=== PATIENT | female | born 1975 | race Caucasian/White ===

== ENCOUNTER → 2017-04-26 | Outpatient (CLI) | payer OTHER ==
[~2017-04-26] MED LIST: ATEN-60 PO; METH10TA6 PO
== END | disposition home or self-care (01) ==
LOC: LAB 13:43
PROVIDERS: ATTEND Preventive Medicine Preventive Medicine/Occupational Environmental Medicine
DX: Z02.1 Encounter for pre-employment examination (principal)
CPT/HCPCS: 36415; 86706; 86735; 86762; 86765; 86787

== ENCOUNTER 2017-06-11 22:32 | Emergency (ER) | payer OTHER ==
[~2017-06-11] VITALS: Ht 152.4 cm; Wt 55.0 kg
[2017-06-11 23:41] LABS: Basophils # (auto) 0 uL; Basophils % (auto) 0.5 % (0.0-2.0); DEFINITIVE SEE PRINTOUT; Eosinophils # (auto) 0 uL; Eosinophils % (auto) 0.6 % (0.0-7.0); Hematocrit 37.9 % (36.0-46.0); Hemoglobin 12.4 g/dL (12.2-16.2); Lymphocytes # (auto) 2.2 uL; Mean Corpuscular Hemoglobin 25.3 pg (28.0-32.0); Mean Corpuscular Hgb Conc. 32.7 g/dL (32.0-36.0); Mean Corpuscular Volume 77.3 fL (80.0-100.0); Mean Platelet Volume 9.4 fL (7.4-10.4); Monocytes # (auto) 0.8 uL; Monocytes % (auto) 11.6 % (0.0-12.0); Neutrophils % (auto) 56.3 % (37.0-80.0); Platelet Count (auto) 255 10^3/uL (140-450); Red Cell Distribution Width 13.2 % (11.6-16.0)
[2017-06-11 23:47] LABS: Albumin 3.9 g/dL (3.4-5.0); Anion Gap 8 (5-15); Calcium 8.8 mg/dL (8.5-10.1); Carbon Dioxide 26 mmol/L (21-32); Chloride 106 mmol/L (98-107); Glucose 91 mg/dL (74-106); Magnesium 2.6 mg/dL (1.6-2.6); Potassium 3.8 mmol/L (3.5-5.1); Sodium 140 mmol/L (136-145)
[2017-06-11 23:48] LABS: INR 0.93 (0.9-1.15); Partial Thromboplastin Time 25.2 sec (22.64-33.71); Prothrombin Time 10.1 sec (9.37-12.3)
[2017-06-11 23:53] LABS: Alkaline Phosphatase 66 U/L (45-117); Aspartate Aminotransferase 20 U/L (15-37); BUN/Creatinine Ratio 12.7; Bilirubin, Total 0.4 mg/dL (0.2-1.0); Blood Urea Nitrogen 8 mg/dL (7-18); GFR African American 135 mL/min; GFR Non-African American 112 mL/min; Total Protein 7.8 g/dL (6.4-8.2)
[2017-06-12 00:02] LABS: Urine Bilirubin Negative (Negative); Urine Blood Negative /uL (Negative); Urine Glucose Normal (Normal); Urine Ketone Negative (Negative); Urine Nitrite Negative (Negative); Urine RBC 1 /hpf (0 - 4); Urine Squamous Epithelial Cell FEW /hpf (<5); Urine Urobilinogen Normal (Negative); Urine pH 6.5 (5.0-8.0)
[2017-06-12 00:03] LABS: Urine Color Straw (Yellow)
[2017-06-12 01:33] VITALS: BP 125/82
== END 2017-06-12 03:28 | disposition home or self-care (01) ==
LOC: ER 22:36
DX: R42 Dizziness and giddiness (principal); E07.9 Disorder of thyroid, unspecified; Z79.899 Other long term (current) drug therapy; I10 Essential (primary) hypertension; F17.210 Nicotine dependence, cigarettes, uncomplicated; R51 Headache
CPT/HCPCS: 36415; 80053; 81001; 83735; 84443; 84484; 85025; 85610; 85730; 93005

== ENCOUNTER → 2017-08-12 | Outpatient (CLI) | payer BC ==
[2017-08-12 13:52] LABS: Prolactin 4.2 ng/mL (2.8-29.2)
[2017-08-12 13:53] LABS: Follicle Stimulating Hormone 5.17 IU/L (SEE BELOW); Leuteinizing Hormone 3.3 IU/L
== END | disposition home or self-care (01) ==
LOC: LAB 11:27
PROVIDERS: ATTEND Specialist
DX: N93.9 Abnormal uterine and vaginal bleeding, unspecified (principal); Z80.41 Family history of malignant neoplasm of ovary
CPT/HCPCS: 36415; 83001; 83002; 84146; 84443

== ENCOUNTER 2017-08-14 07:54 | Emergency (ER) | payer BC ==
[~2017-08-14] VITALS: Ht 152.4 cm; Wt 55.3 kg
[2017-08-14 08:04] VITALS: BP 142/95
[2017-08-14] MEDS ORDERED: KETOROLAC TROMETH 60MG/2ML VIAL IM ONE (08:45)
== END 2017-08-14 09:06 | disposition home or self-care (01) ==
LOC: ER 07:54
DX: M25.562 Pain in left knee (principal); G89.29 Other chronic pain; F17.210 Nicotine dependence, cigarettes, uncomplicated
CPT/HCPCS: 96372; 99283; J1885

== ENCOUNTER 2018-06-22 13:09 | Emergency (ER) | payer BC ==
[~2018-06-22] VITALS: Ht 165.1 cm; Wt 55.3 kg
[2018-06-22 13:25] VITALS: BP 139/95
[2018-06-22 15:34] LABS: Urine Bacteria FEW /hpf (None Seen); Urine Blood Negative /uL (Negative); Urine Specific Gravity 1.007 (1.001-1.035); Urine WBC 8 /hpf (0 - 5)
[2018-06-22] MEDS ORDERED: HYDROcodone-ACET 10/325MG TAB PO ONE (16:30)
[2018-06-22] MEDS ORDERED: MORPHINE SULFATE 4 MG/ML SYR/VIAL IV ONE (16:30)
[2018-06-22] MEDS ORDERED: ONDANSETRON HCL 4 MG/2 ML VIAL IV ONE (16:30)
[2018-06-22] MEDS ORDERED: IBUPROFEN 800 MG TAB PO ONE (16:45)
[2018-06-22] MEDS ORDERED: cefTRIAXone SOD 1,000 MG VL IM ONE (18:15)
[2018-06-22 18:32] LABS: Basophils # (auto) 0 uL; Eosinophils # (auto) 0 uL; Neutrophils % (auto) 75.2 % (37.0-80.0)
[2018-06-22 18:33] LABS: Basophils % (auto) 0.5 % (0.0-2.0); Eosinophils % (auto) 0.3 % (0.0-7.0); Hematocrit 34.6 % (36.0-46.0); Lymphocytes # (auto) 1.4 uL; Lymphocytes % (auto) 14.2 % (10.0-50.0); Mean Corpuscular Hemoglobin 21.5 pg (28.0-32.0); Mean Corpuscular Hgb Conc. 31.9 g/dL (32.0-36.0); Mean Corpuscular Volume 67.4 fL (80.0-100.0); Monocytes # (auto) 0.9 uL; Monocytes % (auto) 9.8 % (0.0-12.0); Neutrophils # (auto) 7.3 uL; Platelet Count (auto) 263 10^3/uL (140-450); Red Blood Cells 5.13 10^6/uL (4.0-5.20); Red Cell Distribution Width 18.2 % (11.8-14.3); White Blood Cell 9.7 10^3/uL (4.4-10.8)
[2018-06-22 18:37] LABS: Albumin 3.9 g/dL (3.4-5.0); BUN/Creatinine Ratio 23.6; Bilirubin, Total 0.5 mg/dL (0.2-1.0); Calcium 8.8 mg/dL (8.5-10.1); Potassium 4.2 mmol/L (3.5-5.1); Total Protein 7.8 g/dL (6.4-8.2)
[2018-06-22] MEDS ORDERED: LIDOCAINE 1% HCL (LOCAL ANESTH.) INJ 20ML MDV IJ ONE (18:45)
== END 2018-06-22 19:04 | disposition home or self-care (01) ==
LOC: ER 13:09
DX: N20.0 Calculus of kidney (principal); E07.89 Other specified disorders of thyroid; F17.210 Nicotine dependence, cigarettes, uncomplicated
CPT/HCPCS: 36415; 74176; 80053; 81001; 81002; 85025; 96372; 99285; J0696

== ENCOUNTER 2018-09-05 16:36 | Emergency (ER) | payer BC ==
[~2018-09-05] VITALS: Ht 149.9 cm; Wt 55.3 kg
[2018-09-05 18:11] LABS: Basophils # (auto) 0 uL; Eosinophils # (auto) 0.1 uL; Nucleated Red Blood Cells % 0.1 %
[2018-09-05 18:12] LABS: Basophils % (auto) 0.6 % (0.0-2.0); Eosinophils % (auto) 1.1 % (0.0-7.0); Hematocrit 36.5 % (36.0-46.0); Hemoglobin 11.6 g/dL (12.2-16.2); Lymphocytes # (auto) 1.5 uL; Lymphocytes % (auto) 30.2 % (10.0-50.0); Mean Corpuscular Hemoglobin 22.1 pg (28.0-32.0); Mean Corpuscular Hgb Conc. 31.8 g/dL (32.0-36.0); Mean Corpuscular Volume 69.7 fL (80.0-100.0); Monocytes # (auto) 0.8 uL; Monocytes % (auto) 15.4 % (0.0-12.0); Neutrophils # (auto) 2.7 uL; Neutrophils % (auto) 52.7 % (37.0-80.0); Platelet Count (auto) 274 10^3/uL (140-450); Red Blood Cells 5.24 10^6/uL (4.0-5.20); Red Cell Distribution Width 17.3 % (11.8-14.3)
[2018-09-05 18:27] LABS: Alanine Aminotransferase 34 U/L (13-56); Albumin 3.7 g/dL (3.4-5.0); Anion Gap 10 (5-15); Aspartate Aminotransferase 24 U/L (15-37); BUN/Creatinine Ratio 21.3; Blood Urea Nitrogen 13 mg/dL (7-18); Calcium 8.3 mg/dL (8.5-10.1); Carbon Dioxide 24 mmol/L (21-32); Chloride 106 mmol/L (98-107); GFR African American 139 mL/min; GFR Non-African American 115 mL/min; Glucose 89 mg/dL (74-106); Magnesium 2.2 mg/dL (1.6-2.6); Potassium 3.8 mmol/L (3.5-5.1); Sodium 140 mmol/L (136-145)
[2018-09-05 18:30] LABS: Alcohol, Urine < 3.0 mg/dL (0-5); Amphetamine Screen, Urine NEGATIVE (NEGATIVE); Barbiturate Scree,Urine NEGATIVE (NEGATIVE); Benzodiazephine Screen, Urine NEGATIVE (NEGATIVE); Cannabinoid Screen, Urine NEGATIVE (NEGATIVE); Cocaine Screen, Urine NEGATIVE (NEGATIVE); Opiate Scree,Urine NEGATIVE (NEGATIVE); Phencyclidine Screen, Urine NEGATIVE (NEGATIVE)
[2018-09-05 18:32] LABS: Alkaline Phosphatase 89 U/L (45-117); Bilirubin, Total 0.3 mg/dL (0.2-1.0); Total Protein 7.7 g/dL (6.4-8.2)
[2018-09-05 19:30] VITALS: BP 130/85
== END 2018-09-05 20:53 | disposition home or self-care (01) ==
LOC: ER 16:41
DX: R00.2 Palpitations (principal); E07.89 Other specified disorders of thyroid; Z90.89 Acquired absence of other organs; Z98.51 Tubal ligation status
CPT/HCPCS: 36415; 80053; 80307; 83735; 84443; 84484; 85025; 93005; 94761

== ENCOUNTER 2018-09-14 20:39 | Emergency (ER) | payer BC ==
[~2018-09-14] VITALS: Ht 149.9 cm; Wt 54.4 kg
[2018-09-14 21:55] LABS: Basophils # (auto) 0 uL; Eosinophils # (auto) 0 uL; Eosinophils % (auto) 0.1 % (0.0-7.0); Lymphocytes # (auto) 1.1 uL; Mean Corpuscular Hemoglobin 22.4 pg (28.0-32.0); Mean Corpuscular Hgb Conc. 31.8 g/dL (32.0-36.0); Monocytes # (auto) 1.3 uL; White Blood Cell 11.6 10^3/uL (4.4-10.8)
[2018-09-14 21:56] LABS: Basophils % (auto) 0.2 % (0.0-2.0); Hematocrit 37.1 % (36.0-46.0); Hemoglobin 11.8 g/dL (12.2-16.2); Lymphocytes % (auto) 9.4 % (10.0-50.0); Mean Corpuscular Volume 70.7 fL (80.0-100.0); Neutrophils # (auto) 9.2 uL; Neutrophils % (auto) 79.3 % (37.0-80.0); Platelet Count (auto) 262 10^3/uL (140-450); Red Blood Cells 5.24 10^6/uL (4.0-5.20); Red Cell Distribution Width 18.2 % (11.8-14.3)
[2018-09-14 22:13] LABS: Albumin 3.6 g/dL (3.4-5.0); BUN/Creatinine Ratio 9.3; Potassium 3.6 mmol/L (3.5-5.1)
[2018-09-14 22:16] LABS: Bilirubin, Total 0.9 mg/dL (0.2-1.0)
[2018-09-14 22:19] LABS: Urine Bacteria FEW /hpf (None Seen); Urine Blood 1+ /uL (Negative); Urine Mucus FEW (None Seen); Urine Specific Gravity 1.017 (1.001-1.035); Urine WBC 230 /hpf (0 - 5); Urine WBC Clumps PRESENT /hpf (None Seen)
[2018-09-15] MEDS ORDERED: MORPHINE SULFATE 4 MG/ML SYR/VIAL IV ONE
[2018-09-15] MEDS ORDERED: SODIUM CHLORIDE 0.9% 1,000 ML IV ONE
[2018-09-15] MEDS ORDERED: ONDANSETRON HCL 4 MG/2 ML VIAL IV ONE
[2018-09-15] MEDS ORDERED: cefTRIAXone 1GM/50ML D5W 50 ML IV ONE (01:15)
[2018-09-15 01:37] VITALS: BP 112/70
== END 2018-09-15 02:25 | disposition home or self-care (01) ==
LOC: ER 20:39
DX: N39.0 Urinary tract infection, site not specified (principal); N23 Unspecified renal colic; E07.89 Other specified disorders of thyroid; Z98.51 Tubal ligation status; Z90.89 Acquired absence of other organs; Z87.891 Personal history of nicotine dependence
CPT/HCPCS: 36415; 74176; 80053; 81001; 82150; 83690; 85025; 96365; 96375; 99284; J0696; J2270; J2405

== ENCOUNTER 2018-10-03 07:46 | Emergency (ER) | payer BC, OTHER ==
[~2018-10-03] VITALS: Ht 152.4 cm; Wt 55.8 kg
[2018-10-03 10:00] VITALS: BP 132/68
[2018-10-03 10:34] LABS: Hepatitis B Surface Antibody Positive
[2018-10-03 13:53] LABS: Hepatitis B Surface Antigen Negative (Negative)
== END 2018-10-03 10:02 | disposition home or self-care (01) ==
LOC: ER 07:46
DX: Z77.21 Contact with and (suspected) exposure to potentially hazardous body fluids (principal); E07.89 Other specified disorders of thyroid; Z90.89 Acquired absence of other organs; Z98.51 Tubal ligation status
CPT/HCPCS: 36415; 86703; 86706; 86803; 87340

== ENCOUNTER → 2019-05-12 | Outpatient (CLI) | payer BC ==
[2019-05-12 12:35] LABS: Potassium 4.3 mmol/L (3.5-5.1)
[2019-05-12 12:40] LABS: Basophils # (auto) 0 uL; Eosinophils # (auto) 0.1 uL; Hemoglobin 11.3 g/dL (12.2-16.2); Lymphocytes # (auto) 1.7 uL; Monocytes # (auto) 0.4 uL; Neutrophils # (auto) 2.4 uL; Nucleated Red Blood Cells % 0.1 %
[2019-05-12 12:41] LABS: Free T4 (Free Thyroxine) 0.72 ng/dL (0.89-1.76); Leuteinizing Hormone 9.2 IU/L; Prolactin 5.35 ng/mL (2.8-29.2)
[2019-05-12 12:42] LABS: BUN/Creatinine Ratio 20.6; Bilirubin, Total 0.6 mg/dL (0.2-1.0); Calcium 8.9 mg/dL (8.5-10.1); Follicle Stimulating Hormone 9.55 IU/L (SEE BELOW); Free T3 2.53 pg/mL (2.3-4.2)
[2019-05-12 12:44] LABS: Basophils % (auto) 0.7 % (0.0-2.0); Eosinophils % (auto) 1.5 % (0.0-7.0); Hematocrit 35.4 % (36.0-46.0); Lymphocytes % (auto) 37.1 % (10.0-50.0); Mean Corpuscular Hemoglobin 23.9 pg (28.0-32.0); Mean Corpuscular Hgb Conc. 31.9 g/dL (32.0-36.0); Mean Corpuscular Volume 74.9 fL (80.0-100.0); Monocytes % (auto) 8.8 % (0.0-12.0); Neutrophils % (auto) 51.9 % (37.0-80.0); Platelet Count (auto) 252 10^3/uL (140-450); Red Blood Cells 4.72 10^6/uL (4.0-5.20); Red Cell Distribution Width 14.7 % (11.8-14.3); White Blood Cell 4.6 10^3/uL (4.4-10.8)
[2019-05-12 12:53] LABS: Urine Bacteria NONE SEEN /hpf (None Seen); Urine Blood Negative /uL (Negative); Urine Mucus FEW (None Seen); Urine Specific Gravity 1.019 (1.001-1.035); Urine WBC 1 /hpf (0 - 5)
== END | disposition home or self-care (01) ==
LOC: LAB 10:44
PROVIDERS: ATTEND Internal Medicine
DX: F41.9 Anxiety disorder, unspecified (principal); D64.9 Anemia, unspecified; E05.00 Thyrotoxicosis with diffuse goiter without thyrotoxic crisis or storm
CPT/HCPCS: 36415; 80053; 80061; 81001; 82306; 82672; 83001; 83002; 83036; 84144; 84146; 84439; 84443; 84481; 85025

== ENCOUNTER 2020-02-19 11:20 | Emergency (ER) | payer BC ==
[~2020-02-19] VITALS: Ht 152.4 cm; Wt 59.9 kg
[2020-02-19 12:06] VITALS: BP 136/96
[2020-02-19] MEDS ORDERED: diphenhdrAMINE HCL 50 MG/1 ML VL IM ONE (13:00)
[2020-02-19] MEDS ORDERED: methylPREDNISolone SOD SUCC 125 MG/2 ML VL IM ONE (13:00)
== END 2020-02-19 13:30 | disposition home or self-care (01) ==
LOC: ER 11:20
DX: R21 Rash and other nonspecific skin eruption (principal); Z79.899 Other long term (current) drug therapy
CPT/HCPCS: 96372; 99284; J1200; J2930

== ENCOUNTER 2023-04-06 09:22 | Inpatient (IN) | payer BC, OTHER ==
[~2023-04-06] VITALS: Ht 157.5 cm; Wt 86.2 kg
[~2023-04-06 09:22] MED LIST changes: -ATEN-60 PO; -METH10TA6 PO; +TRAM-711 PO
[2023-04-06] MEDS ORDERED: ONDANSETRON HCL 4 MG/2 ML VIAL IV PRN ×2 (13:30→19:00)
[2023-04-06] MEDS ORDERED: ACETAMINOPHEN 500 MG TAB PO PRN (13:30)
[2023-04-06] MEDS ORDERED: NITROGLYCERIN 0.4 MG SL TAB SL PRN (13:30)
[2023-04-06] MEDS ORDERED: MORPHINE SULFATE INJ 2 MG/ml SYRG IV PRN (13:30)
[2023-04-06] MEDS ORDERED: ceFAZolin 1GM/50ML 50 ML IV ONE (13:30)
[2023-04-06] MEDS ORDERED: CELECOXIB 100 MG CAP PO ONE ×2 (13:45)
[2023-04-06] MEDS ORDERED: ACETAMINOPHEN 500 MG TAB PO ONE (13:45)
[2023-04-06] MEDS ORDERED: ACETAMINOPHEN IV 100 ML IV ONE (13:54)
[2023-04-06] MEDS ORDERED: GABAPENTIN 400 MG CAP PO ONE (14:00)
[2023-04-06] MEDS ORDERED: ACETAMINOPHEN IV 1000 MG/100ML (10MG/ML) IV ONE (14:00)
[2023-04-06] MEDS ORDERED: GABAPENTIN 400 MG CAP ONE (14:18)
[2023-04-06] MEDS ORDERED: GLYCOPYRROLATE 0.2 MG/ML 1ML VIAL ONE (14:19)
[2023-04-06] MEDS ORDERED: KETOROLAC TROMETH 30 MG/ML 1ML VIAL ONE (14:20)
[2023-04-06] MEDS ORDERED: PROPOFOL 10 MG/ML 20 ML IV ONE ×2 (14:20→17:53)
[2023-04-06] MEDS ORDERED: LIDOCAINE 2% (LOCAL ANESTH.) PF 5ml SDV ONE (14:20)
[2023-04-06] MEDS ORDERED: ONDANSETRON HCL 4 MG/2 ML VIAL ONE (14:20)
[2023-04-06] MEDS ORDERED: DexAMETHasone SOD PHOS 10MG/1ML VIAL INJ ONE (14:20)
[2023-04-06] MEDS ORDERED: MIDAZOLAM HCL 2MG/2ML 2ml VIAL (1mg/ml) ONE (14:24)
[2023-04-06] MEDS ORDERED: fentaNYL CITRATE 100 MCG/2 ML VL ONE (14:24)
[2023-04-06] MEDS ORDERED: SUGAMMADEX 200mg/2ml Vial (100MG/ML) IV ONE (14:24)
[2023-04-06] MEDS ORDERED: EPINEPHrine HCL 1 MG/1 ML AMP ONE (14:26)
[2023-04-06] MEDS ORDERED: DexAMETHasone SOD PHOS 4 MG/1ML SDV INJ ONE (14:26)
[2023-04-06] MEDS ORDERED: SODIUM CHLORIDE LOCK 10 ML ONE (14:32)
[2023-04-06] MEDS ORDERED: LIDOCAINE W/ EPINEPHRINE 1% 20ML VIAL ONE (15:11)
[2023-04-06] MEDS ORDERED: METHYLENE BLUE 0.5% 5MG/ML 10ml AMP IV ONE (15:59)
[2023-04-06] MEDS ORDERED: ESMOLOL HCL 10 ML IV ONE (16:43)
[2023-04-06] MEDS ORDERED: ROCURONIUM 10MG/ML 10ML VIAL IV ONE (16:51)
[2023-04-06] MEDS ORDERED: CONJ ESTROGENS 0.625MG/GM VAG CRM 30GM PV ONE (18:20)
[2023-04-06] MEDS ORDERED: ePHEDrine SULFATE 50 MG/ML AMP IV PRN (19:00)
[2023-04-06] MEDS ORDERED: HYDROmorphone HCL 2 MG/ML VL/or syr IV PRN (19:00)
[2023-04-06] MEDS ORDERED: fentaNYL CITRATE 100 MCG/2 ML VL IV PRN (19:00)
[2023-04-06] MEDS ORDERED: FLUMAZENIL 0.1 MG/ML INJ 10ML MDV IV PRN (19:00)
[2023-04-06] MEDS ORDERED: NALOXONE HCL 0.4 MG/ML VIAL IV PRN (19:00)
[2023-04-06] MEDS ORDERED: LABETALOL HCL 5 MG/ML 4ML SYRINGE IV PRN (19:00)
[2023-04-06] MEDS ORDERED: hydrALAZINE HCL 20 MG/ML VL IV PRN (19:00)
[2023-04-06] MEDS: oxyCODONE HCL 5MG TAB PO PRN ×2 (19:23→23:26)
[2023-04-06] MEDS ORDERED: [UNRECOGNIZED DRUG - CODE] SC (21:44)
[2023-04-06] MEDS ORDERED: LEFL20TA PO (21:44)
[2023-04-06 21:48] VITALS: BP 128/86
[2023-04-06] MEDS: SODIUM CHLORIDE 0.9% 1,000 ML IV SCH (22:11)
[2023-04-07] VITALS (7 sets, daily range): BP systolic 126–132; BP diastolic 71–86
[2023-04-07] MEDS: oxyCODONE HCL 5MG TAB PO PRN ×3 (03:48→13:15)
[2023-04-07] MEDS: SODIUM CHLORIDE 0.9% 1,000 ML IV SCH ×3 (06:36→22:17)
[2023-04-07] MEDS: MORPHINE SULFATE 4 MG/ML SYR/VIAL IV PRN ×2 (14:50→20:35)
[2023-04-07] MEDS ORDERED: KETOROLAC TROMETH 60MG/2ML VIAL IM ONE (15:30)
[2023-04-08] MEDS: oxyCODONE HCL 5MG TAB PO PRN ×3 (01:50→10:55)
[2023-04-08 05:00] VITALS: BP 99/69
[2023-04-08] MEDS: SODIUM CHLORIDE 0.9% 1,000 ML IV SCH (06:37)
[2023-04-08 09:35] VITALS: BP 117/71
[2023-04-08 12:27] VITALS: BP 105/60
== END 2023-04-08 14:00 | disposition home or self-care (01) | DRG 743 ==
LOC: SUR 09:22 → OVERFLOW 13:30 → CENTRAL 19:55
PROVIDERS: ADMIT Obstetrics & Gynecology; ATTEND Obstetrics & Gynecology
PROC: 0UB74ZZ Excision of Bilateral Fallopian Tubes, Percutaneous Endoscopic Approach (ICD-10-PCS; 2023-04-06)
PROC: 0TSD4ZZ Reposition Urethra, Percutaneous Endoscopic Approach (ICD-10-PCS; 2023-04-06)
PROC: 8E0W4CZ Robotic Assisted Procedure of Trunk Region, Percutaneous Endoscopic Approach (ICD-10-PCS; 2023-04-06)
PROC: 0JQC3ZZ Repair Pelvic Region Subcutaneous Tissue and Fascia, Percutaneous Approach (ICD-10-PCS; 2023-04-06)
PROC: 0UT94ZZ Resection of Uterus, Percutaneous Endoscopic Approach (ICD-10-PCS; principal; 2023-04-06 16:22)
DX: N89.8 Other specified noninflammatory disorders of vagina (principal); N93.8 Other specified abnormal uterine and vaginal bleeding; N92.6 Irregular menstruation, unspecified; N39.3 Stress incontinence (female) (male)
CPT/HCPCS: 81025; 86850; 86870; 86900; 86901; C1771; G0378; J0131; J0171; J0690; J1100; J1885; J2001; J2250; J2405; J2704